=== PATIENT | female | born 1965 | race African-American/Black ===

== ENCOUNTER 2018-01-23 21:29 | Emergency (ER) | payer OTHER ==
[~2018-01-23] VITALS: Ht 162.6 cm; Wt 95.0 kg
[~2018-01-23 21:29] MED LIST: FERR15DR7 PO; IBUP600T26 PO; PERC5TAB12 PO; TAB-TAB PO
[2018-01-23 21:33] VITALS: BP 141/83; PULSE 78; RESP 18; TEMP 97.5; O2SAT 100
[2018-01-23] MEDS ORDERED: ACETAMINOPHEN/HYDROcodone 325 MG/5 MG TAB PO ONE (22:30)
--- NOTE | 2018-01-23 22:39 | PD ---
HPI Chief Complaint: Edema Time Seen by Provider: 22:31 Travel History International Travel<30 days: No Contact w/Intl Traveler<30days: No Traveled to known affect area: No History of Present Illness HPI 52-year-old black female presents emergency department with complaints of bilateral leg pain right greater than left. She also states that she has been having increasing pain in her anterior right thigh. Patient suffers from a history of morbid obesity and chronic knee pain. She had gastric bypass and has lost large amount of weight. The patient states that she has had pain of a similar nature for years now but as significantly worsened. She states that she has [id number] arthritis in both knees. She has been seen by Ortho in the past and has had knee injections including Synvisc. Patient is currently under the care of Dr. Parmar. She was told that the next step in her care would be knee replacements. She denies any fever or chills. No chest pain or shortness of breath. She denies any numbness, tingling or focal weakness. No trauma. Symptoms are moderate. Worse with walking. No alleviating factors. PFSH Past Medical History Narrative Medical Morbid obesity, osteoarthritis, gastric bypass, chronic back pain, sleep apnea. Denies diabetes, and hypercholesterolemia. Denies statins. Arthritis: Yes Blood Disorders: No Cancer: No Cardiovascular Problems: No Diabetes: No (GESTATIONAL DIABETES DURING ) Diminished Hearing: No Endocrine: No Gastrointestinal Disorders: Yes (HX OF GASTRIC BYPASS, HIATAL HERNIA) Genitourinary: No Hepatitis: No Hiatal Hernia: Yes Immune Disorder: No Medical other: Yes (HX OF GASTRIC BYPASS SURGERY) Musculoskeletal: Yes (OSTEOARTHRITIS IN KNEES) Neurologic: No Psychiatric: No Reproductive: No Respiratory: No Immunizations Current: Yes Sleep Apnea: Yes (HX C PAP) Thyroid Disease: No ?: Not Past Surgical History Abdominal Surgery: Yes (gastric bypass 11/2009, HERNIA) AICD: No Cardiac Surgery: No Ear Surgery: No Endocrine Surgery: No Eye Surgery: No Genitourinary Surgery: No Gynecologic Surgery: No Joint Replacement: No Neurologic Surgery: Yes (LOWER BACK SURGERY L4-5 -- 2007) Oral Surgery: No Pacemaker: No Thoracic Surgery: No Social History Alcohol Use: Yes Tobacco Use: No Substance Use: No Allergies-Medications (Allergen,Severity, Reaction): Coded Allergies: No Known Allergies (Verified , 02/12/14) Reported Meds & Prescriptions Reported Meds & Active Scripts Active Clifton (Hydrocodone-Acetaminophen) 5 Mg-325 Mg Tab 1 Tab PO Q6H PRN Mobic (Meloxicam) 15 Mg Tab 15 Mg PO DAILY Reported Percocet 5-325 mg (Oxycodone/Acetaminophen) 5 Mg/325 Mg Tab 1-2 Tab PO Q6 PRN Ibuprofen 600 Mg Tab 600 Mg PO Q6 Ferrous Drops (Ferrous Sulfate) 15 Mg/Ml Prakash 2 Tbs PO DAILY Multivitamin (Multivitamins) 1 Tab Tab 1 Tab PO DAILY Review of Systems Except as stated in HPI: all other systems reviewed are Neg Physical Exam Narrative GENERAL: Well-developed, well-nourished in no acute distress. Nontoxic appearing. HEAD: Normocephalic, atraumatic. EYES: Pupils equal round and reactive. Extraocular motions intact. No scleral icterus. No injection or drainage. ENT: TMs clear without erythema. The external auditory canals clear. Nose: clear . Posterior pharynx is pink and moist. No tonsillar edema or exudate. Uvula midline. Airway patent. NECK: Trachea midline.Supple, nontender, moves head freely. No central bony tenderness or spasm. CARDIOVASCULAR: Regular rate and rhythm without murmurs, gallops, or rubs. RESPIRATORY: Clear to auscultation. Breath sounds equal bilaterally. No wheezes , rales, or rhonchi. GASTROINTESTINAL: Abdomen soft, non-tender, nondistended. No hepato-splenomegaly , or palpable masses. No guarding. EXTREMITIES: No clubbing, cyanosis. Patient has intact sensation with good distal pulses. Patient has very large legs secondary to her body habitus. She has osteoarthritis changes in both knees. She ambulates with an antalgic gait. Both legs are warm with normal color and temperature. There is no erythema, cords. I am able to flex and extend both knees without significant discomfort. Patient does complain of pain in her right anterior distal thigh and pretibial region. BACK: Nontender without deformity or crepitance. No flank tenderness. Data Data Last Documented VS Vital Signs Date Time Temp Pulse Resp B/P (MAP) Pulse Ox O2 Delivery O2 Flow Rate FiO2 01/23/18 21:33 97.5 78 18 141/83 (102) 100 Orders Orders Us Leg Venous Doppler (01/23/18 22:27) Basic Metabolic Panel (Bmp) (01/23/18 22:27) Creatine Kinase (Cpk) (01/23/18 22:27) Acetamin-Hydrocod 325-5 Mg (Clifton 5-325 (01/23/18 22:30) Ed Discharge Order (01/24/18 00:31) Labs Laboratory Tests Test 01/23/18 23:25 Blood Urea Nitrogen 19 MG/DL Creatinine 0.81 MG/DL Random Glucose 88 MG/DL Calcium Level 9.1 MG/DL Sodium Level 143 MEQ/L Potassium Level 3.9 MEQ/L Chloride Level 107 MEQ/L Carbon Dioxide Level 28.5 MEQ/L Anion Gap 8 MEQ/L Estimat Glomerular Filtration Rate 91 ML/MIN Total Creatine Kinase 147 U/L MDM Medical Decision Making Medical Screen Exam Complete: Yes Emergency Medical Condition: Yes Medical Record Reviewed: Yes Interpretation(s) Laboratory Tests Test 01/23/18 23:25 Blood Urea Nitrogen 19 MG/DL Creatinine 0.81 MG/DL Random Glucose 88 MG/DL Calcium Level 9.1 MG/DL Sodium Level 143 MEQ/L Potassium Level 3.9 MEQ/L Chloride Level 107 MEQ/L Carbon Dioxide Level 28.5 MEQ/L Anion Gap 8 MEQ/L Estimat Glomerular Filtration Rate 91 ML/MIN Total Creatine Kinase 147 U/L Last 24 hours Impressions Lower Extremity Ultrasound 01/23/182226 Signed Impressions: Service Date/Time: Tuesday, January 23, 2018 22:41 - CONCLUSION: 1. No DVT in the right leg. 2. No abnormality within the right thigh in the region of concern. Ronald Montilla MD Differential Diagnosis Differential diagnosis: Osteoarthritis, DVT, myositis, electrolyte abnormality Narrative Course We will perform an ultrasound of her right lower extremity to rule out DVT. Basic chemistry and CK been ordered. Patient was given 1 Clifton 5 mg p.o. Ultrasound of the lower extremities negative for DVT. Her CK is normal. Electrolytes are within normal limits. Patient's etiology of pain is not completely identified. I suspect it is from her osteoarthritis. I have advised the patient she will be discharged home in limited quantity of Clifton as well as meloxicam. She is to call her primary care as well as her surgeon Dr. Garcia to confirm she can take the medication with her history of gastric bypass. This is acute exacerbation of chronic knee pain Diagnosis Primary Impression: Acute exacerbation of chronic knee pain Patient Instructions: General Instructions Additional Instructions: Rest. Meloxicam and Clifton. Call your doctor as well as Dr. Garcia to confirm you can take meloxicam with your history of your gastric bypass. Follow-up with Dr. Parmar your orthopedist for further treatment of your knee pain. Return to the ER if any problems. Med/Other Pt SpecificInfo: Prescription(s) given Scripts Hydrocodone-Acetaminophen (Clifton) 5 Mg-325 Mg Tab 1 TAB PO Q6H Y for PAIN, #12 TAB 0 Refills Prov: Brad Porter MD 01/24/18 Meloxicam (Mobic) 15 Mg Tab 15 MG PO DAILY, #30 TAB 0 Refills Prov: Brad Porter MD 01/24/18 Disposition: 01 DISCHARGE HOME Condition: Stable Derrek Young Jan 23, 2018 22:39
--- NOTE | 2018-01-23 23:26 | RADRPT ---
EXAM DATE/TIME: 01/23/2018 22:41 [facility] COMPARISON: No previous studies available for comparison. EXTERNAL COMPARISON : [facility], US LEG, RIGHT VENOUS DOPPLER, March 11, 2010 INDICATIONS : Pain and swelling in right leg. MEDICAL HISTORY : Sleep apnea. Arthritis. Hiatal hernia. SURGICAL HISTORY : Gastric bypass. Back surgery L4-L5. ENCOUNTER: Initial ACUITY: 1 week PAIN SCORE: 3/10 LOCATION: Right leg. TECHNIQUE: Venous ultrasound of the leg was performed from the inguinal ligament to the proximal calf. Real-neil e, color Doppler and spectral tracing, compression and augmentation techniques were used. FINDINGS: There is normal compressibility of the deep venous system from the inguinal region to the proximal ca lf. No echogenic clot is seen in the lumen of the common femoral, femoral, popliteal, and posterior tibial veins. There is a normal response of the venous system to proximal and distal augmentation an d respiration. CONCLUSION: 1. No DVT in the right leg. 2. No abnormality within the right thigh in the region of concern. Ronald Montilla MD on January 23, 2018 at 23:24 Board Certified Radiologist. This report was verified electronically.
[2018-01-24 00:12] LABS: BICARBONATE 28.5 MEQ/L (21.0-32.0); CALCIUM 9.1 MG/DL (8.5-10.1); CREATININE 0.81 MG/DL (0.50-1.00)
[2018-01-24] MEDS ORDERED: NORC5TAB PO (00:32)
[2018-01-24] MEDS ORDERED: MOBI15TA PO (00:32)
== END 2018-01-24 00:55 | disposition home or self-care (01) ==
LOC: NEPD 21:29
DX: M79.604 Pain in right leg (principal); G89.29 Other chronic pain
CPT/HCPCS: 80048; 82550; 93971; 99284